=== PATIENT | male | born 1955 | race Caucasian/White ===

== ENCOUNTER 2018-04-05 21:31 | Emergency (ER) | payer BC ==
[~2018-04-05] VITALS: Ht 180.3 cm; Wt 77.3 kg
[2018-04-05 21:48] VITALS: BP 130/69; PULSE 71; RESP 18; Ht 180.3 cm; Wt 77.3 kg
--- NOTE | 2018-04-05 22:01 | ERD ---
ER Documentation Chief Complaint Chief Complaint Bilateral upper leg pain X 5 months worse last 3 days 12/24 pain HPI This is a 63-year-old male who presents here in the emergency department with complaints of bilateral leg pain. Stated that her left leg radiates down to her left thigh area. Stated that this has been going on and off for about 5 months. His pain is been consistent with 12/24. Taking oxycodone at home. Stated that he ran out of oxycodone. Also stated that they did MRIs/and other tests with negative results. Was referred to a pain specialist by his primary care physician. Also stated that he wants a pain medicine prescription. Also stated that the most effective pain medicine for him was Dilaudid IM. Denies headache, head injury, loss of consciousness, dizziness, neck pain, neck stiffness, throat pain, difficulty swallowing, difficulty breathing lying flat, shoulder pain, chest pain, back pain, abdominal pain, nausea, vomiting, constipation, diarrhea, urinary symptoms, loss of bowel and bladder control, trauma, injury, falls, difficulty walking due to pain, numbness or tingling sensation, calf pain, recent travel, recent major surgery in the last 3 weeks, calf pain, recent long travel, recent exposure to any illness, recent antibiotic use in the last 3 months, fever, chills, seizures. Past medical history: Surgical history: Social: Denies smoking, use of alcoholic beverages, use of illegal drugs. Physical exam: Consistent with sciatica. ROS All systems reviewed and are negative except as per history of present illness. Medications Home Meds Active Scripts Oxycodone Hcl* (IR) (Oxycodone Hcl*) 5 Mg Capsule, 10 MG PO Q4 PRN for PAIN, #4 TAB Prov:TANNER IVEY 04/05/18 PMhx/Soc Medical and Surgical Hx: pt denies Surgical Hx History of Surgery: No Anesthesia Reaction: No Hx Neurological Disorder: No Hx Respiratory Disorders: No Hx Cardiac Disorders: No Hx Psychiatric Problems: No Hx Miscellaneous Medical Probl: Yes (chronic back and leg pain) Hx Alcohol Use: No Hx Substance Use: No Hx Tobacco Use: No Smoking Status: Never smoker Physical Exam Vitals Vital Signs Date Temp Pulse Resp B/P (MAP) Pulse Ox O2 O2 Flow FiO2 Time Delivery Rate 04/05/18 98.3 71 18 130/69 98 21:48 (89) Physical Exam Const: No acute distress Head: Atraumatic Eyes: Normal Conjunctiva ENT: Normal External Ears, Nose and Mouth. Neck: Full range of motion. No meningismus. Resp: Clear to auscultation bilaterally Cardio: Regular rate and rhythm, no murmurs Abd: Soft, non tender, non distended. Normal bowel sounds. No abdominal tenderness. No pulsating abdominal mass. Skin: No petechiae or rashes Back: No midline or flank tenderness. Positive straight leg test bilaterally. Positive cross straight leg test bilaterally. No CVA tenderness. No signs of trauma. No saddle anesthesia. Ext: No cyanosis, or edema. No calf swelling/tenderness bilaterally. Neur: Awake and alert. No neurological deficits. Psych: Normal Mood and Affect Results 24 hrs Current Medications Medications Dose Sig/Song Start Time Status Last (Trade) Ordered Route PRN Stop Time Admin Dose Reason Admin 1 mg ONCE STAT 04/05/18 DC 04/05/18 Hydromorphone IM 22:07 22:17 HCl 04/05/18 22:08 (Dilaudid) Procedures/MDM Diagnostic tests: Clinical exam. Treatment: Dilaudid IM. Re-evaluation: Denies pain. No saddle anesthesia. No neurovascular deficits. No neurological deficits. Ambulatory with steady gait. Stated that he feels much better at this time and that he is ready to go home. Differential diagnosis I have low suspicion for AAA, cauda equina syndrome, pyelonephritis, obstructing kidney stone, nephrolithiasis, septic stone, L-spine fracture, DVT, cellulitis. Final diagnosis: Chronic back pain. Sciatica. Prescription: Oxycodone. Follow-up with PCP in the next 24-48 hours. Follow-up with your pain specialist in the next 24-48 hours. Come back here in the emergency department for any new symptoms or any worsening symptoms. All questions and concerns were answered. Patient and family members verbalized understanding and agreed with plan of care. Hemodynamically stable on discharge. Departure Diagnosis: Primary Impression: Chronic pain Condition: Stable Additional Instructions: Follow-up with PCP in the next 24-48 hours. Follow-up with your pain specialist in the next 24-48 hours. Come back here in the emergency department for any new symptoms or any worsening symptoms. TANNER IVEY Apr 05, 2018 22:01
[2018-04-05] MEDS ORDERED: HYDROmorphONE 2 MG/ML SYG IM STA (22:07)
[2018-04-05] MEDS ORDERED: OXYC5CAP17 PO (22:56)
== END 2018-04-05 23:25 | disposition home or self-care (01) ==
LOC: FTE 21:31
DX: M54.40 Lumbago with sciatica, unspecified side (principal)
CPT/HCPCS: 96372; 99284; J1170